=== PATIENT | male | born 1980 | race Caucasian/White ===

== ENCOUNTER 2018-04-16 14:29 | Emergency (ER) | payer OTHER ==
[~2018-04-16] VITALS: Ht 180.3 cm; Wt 72.6 kg
[2018-04-16] MEDS ORDERED: HYDROcodone-ACET 10/325MG TAB PO ONE (15:15)
[2018-04-16] MEDS ORDERED: CARISOPRODOL 350 MG TAB PO ONE (15:15)
[2018-04-16 15:20] VITALS: BP 112/52
[2018-04-16 15:31] LABS: Urine Bacteria NONE SEEN /hpf (None Seen); Urine Blood Negative /uL (Negative); Urine Specific Gravity 1.004 (1.001-1.035); Urine WBC <1 /hpf (0 - 3)
== END 2018-04-16 16:52 | disposition home or self-care (01) ==
LOC: EDBD 14:29 → ER 14:29
DX: M54.16 Radiculopathy, lumbar region (principal); M79.1 Myalgia; F17.210 Nicotine dependence, cigarettes, uncomplicated
CPT/HCPCS: 72131; 81001

== ENCOUNTER 2018-12-01 15:44 | Emergency (ER) | payer MEDICAID ==
[~2018-12-01] VITALS: Ht 177.8 cm; Wt 72.6 kg
[2018-12-01 15:50] VITALS: BP 112/80
== END 2018-12-01 17:50 | disposition home or self-care (01) ==
LOC: ER 15:46
DX: L30.9 Dermatitis, unspecified (principal); B99.9 Unspecified infectious disease

== ENCOUNTER 2021-11-29 12:45 | Emergency (ER) | payer MEDICAID, OTHER ==
[~2021-11-29] VITALS: Ht 170.2 cm; Wt 81.6 kg
[2021-11-29 12:56] VITALS: BP 132/72
== END 2021-11-29 13:35 | disposition home or self-care (01) ==
LOC: EDUNIT# 12:45 → ER 12:45
DX: F10.129 Alcohol abuse with intoxication, unspecified (principal); F17.210 Nicotine dependence, cigarettes, uncomplicated; F12.10 Cannabis abuse, uncomplicated; F15.10 Other stimulant abuse, uncomplicated

== ENCOUNTER 2022-04-26 13:18 | Emergency (ER) | payer MEDICAID ==
[~2022-04-26] VITALS: Ht 182.9 cm; Wt 77.1 kg
[2022-04-26 14:15] VITALS: BP 132/73
== END 2022-04-26 16:55 | disposition left against medical advice (07) ==
LOC: ER 13:18
DX: M79.602 Pain in left arm (principal); Z53.21 Procedure and treatment not carried out due to patient leaving prior to being seen by health care provider